=== PATIENT | female | born 2000 | race African-American/Black ===

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

== ENCOUNTER 2020-01-31 23:25 | Emergency (ER) | payer OTHER ==
[~2020-01-31] VITALS: Ht 167.6 cm; Wt 61.0 kg
[2020-01-31 23:42] VITALS: BP 122/73
== END 2020-02-01 00:30 | disposition left against medical advice (07) ==
LOC: ER 23:25
DX: Z53.21 Procedure and treatment not carried out due to patient leaving prior to being seen by health care provider (principal)

== ENCOUNTER 2020-04-01 15:36 | Emergency (ER) | payer OTHER ==
[~2020-04-01] VITALS: Ht 167.6 cm; Wt 70.0 kg
[2020-04-01 17:06] LABS: CLARITY URINE CLEAR (CLEAR); COLOR URINE YELLOW (YELLOW); KETONES URINE NEGATIVE (NEGATIVE); LEUKOCYTE ESTERASE URINE NEGATIVE (NEGATIVE); NITRITE URINE NEGATIVE (NEGATIVE); OCCULT BLOOD URINE 2+ (NEGATIVE); PROTEIN URINE NEGATIVE (NEGATIVE); SPECIFIC GRAVITY URINE 1.022 (1.005-1.030)
[2020-04-01 17:52] VITALS: BP 149/88
== END 2020-04-01 17:53 | disposition home or self-care (01) ==
LOC: ER 15:36
DX: N76.0 Acute vaginitis (principal); L30.9 Dermatitis, unspecified; N94.10 Unspecified dyspareunia
CPT/HCPCS: 81003; 81025; 99283